=== PATIENT | female | born 1925 | race Caucasian/White ===

== ENCOUNTER 2016-12-18 18:46 | Emergency (ER) | payer OTHER, MEDICARE ==
[~2016-12-18] VITALS: Ht 157.5 cm; Wt 64.0 kg
[~2016-12-18 18:46] MED LIST: ALENDRONATE; ARICEPT10 MG PO; ASPIR 8181 M1 PO; ASPIRIN81 M1 PO; BUSPAR5 MG PO; COMBIGAN O20 DROP/5 BOTH EYES; COMBIGAN O20 DROP/5 RIGHT EYE; COUGH SYRU100 MG/5 M PO; COZAAR100 MG PO; CRESTOR5 MG PO; EXELON PATCH; EXELON PATCH4.6 MG TD; FOSAMAX5 MG PO; FUROSEMIDE20 MG PO; GLIPIZIDE-METF1 EAC2; GLIPIZIDE-METF1 EAC2 PO; GLIPIZIDE5 MG PO; GLUCOPHAGE500 MG PO; GLUCOTROL5 MG PO; LASIX20 MG PO; LATANOPROST2.5 ML BOTH EYES; LOPRESSOR50 MG PO; LORTAB 5-500 T1 EACH PO; LOSARTAN POTAS100 MG PO; NAMENDA10 MG; NAMENDA10 MG PO; PREDNISONE20 MG PO; TOPROL XL50 MG PO; XALATAN2.5 ML BOTH EYES; [UNRECOGNIZED DRUG - OTHER]; [UNRECOGNIZED DRUG - OTHER]
[2016-12-18] MEDS ORDERED: KEFLEX500 MG PO (23:00)
[2016-12-18 23:35] VITALS: BP 217/84
== END 2016-12-18 23:57 ==
LOC: EME 18:46
DX: S01.01XA Laceration without foreign body of scalp, initial encounter (principal); W18.30XA Fall on same level, unspecified, initial encounter; Y92.129 Unspecified place in nursing home as the place of occurrence of the external cause; F02.80 Dementia in other diseases classified elsewhere, unspecified severity, without behavioral disturbance, psychotic disturbance, mood disturbance, and anxiety; G30.9 Alzheimer's disease, unspecified; I10 Essential (primary) hypertension; E11.9 Type 2 diabetes mellitus without complications; Z79.84 Long term (current) use of oral hypoglycemic drugs; Z79.82 Long term (current) use of aspirin
CPT/HCPCS: 99281; 99283; J2060